=== PATIENT | male | born 1945 | race Caucasian/White ===

== ENCOUNTER 2023-11-02 12:43 | Emergency (ER) | payer MEDICARE ==
--- NOTE | 2023-11-02 13:13 | ED ---
Male Urogenital HPI - General Chief complaint: Urogenital Stated complaint: urinary retention Time Seen by Provider: 11/02/23 12:58 Source: patient, RN notes reviewed Mode of arrival: ambulatory Limitations: no limitations - History of Present Illness Initial comments: This is an 78-year-old male who presents to the emergency department for urinary retention. States that he has not been able to urinate since about 11pm last night. Reports increasing abdominal pain as a result. He did have problems with urinary retention 3 years ago and required a Dinero catheter. He has also had urinary tract infections that have lead to urinary retention. He does have an enlarged prostate which occasionally causes him to have a slower urine stream. He does not currently follow with urology. - Related Data Home Medications Medication Instructions Recorded Confirmed lisinopriL [Zestril] 2.5 mg PO DAILY 05/13/14 01/16/16 metFORMIN HCL [Glucophage] 1,000 mg PO BID 05/13/14 01/16/16 Glimepiride [Amaryl] 1 mg PO BID 01/12/16 01/16/16 Ibuprofen [Motrin] 200 - 400 mg PO Q6HR PRN 01/12/16 01/16/16 Multivitamins, Thera [Multivitamin] 1 tab PO DAILY 01/12/16 01/16/16 Allergies Allergy/AdvReac Type Severity Reaction Status Date / Time No Known Allergies Allergy Verified 11/02/23 12:55 Review of Systems ROS Statement: Those systems with pertinent positive or pertinent negative responses have been documented in the HPI. ROS Other: All systems not noted in ROS Statement are negative. Past Medical History Past Medical History: Asthma, Cancer, Diabetes Mellitus, Hypertension, Prostate Disorder Additional Past Medical History / Comment(s): ASTHMA IN PAST. Takes BP RX for PREVENTION OF Kidneys, HAS "BORDERLINE HTN." HX Melanoma. BPH. History of Any Multi-Drug Resistant Organisms: None Reported Past Surgical History: Orthopedic Surgery Additional Past Surgical History / Comment(s): LT Ankle ORIF. COLONOSCOPY. Past Anesthesia/Blood Transfusion Reactions: No Reported Reaction Past Psychological History: No Psychological Hx Reported Smoking Status: Never smoker Past Alcohol Use History: Occasional Past Drug Use History: None Reported - Past Family History Brother(s) Family Medical History: Cancer General Exam Limitations: no limitations General appearance: alert, in no apparent distress Head exam: Present: atraumatic, normocephalic, normal inspection Respiratory exam: Present: normal lung sounds bilaterally. Absent: respiratory distress, wheezes, rales, rhonchi, stridor Cardiovascular Exam: Present: regular rate, normal rhythm, normal heart sounds. Absent: systolic murmur, diastolic murmur, rubs, gallop, clicks GI/Abdominal exam: Present: soft, tenderness (Suprapubic), normal bowel sounds. Absent: distended Neurological exam: Present: alert, oriented X3, CN II-XII intact Psychiatric exam: Present: normal affect, normal mood Skin exam: Present: warm, dry, intact, normal color. Absent: rash Course Vital Signs 11/02/23 11/02/23 12:51 13:18 Temperature 98.3 F 97.9 F Pulse Rate 66 61 Respiratory 16 Rate Blood Pressure 163/84 174/84 O2 Sat by Pulse 95 100 Oximetry Medical Decision Making - Medical Decision Making This is an 78-year-old male who presents to the emergency department for urinary retention. Was pt. sent in by a medical professional or institution? @ -No Did you speak to anyone other than the patient for history? @ -No Did you review nursing and triage notes? @ -Yes, and I agree, it is accurate with regards to the patient's symptoms. Were old charts reviewed? @ -No Differential Diagnosis? @ -Differential Urinary Retention: Obstruction, UTI, neurological issue, this is not meant to be an all-inclusive list. EKG interpreted by me (3pts min.)? @ -Not obtained X-rays interpreted by me (1pt min.)? @ -Not obtained CT interpreted by me (1pt min.)? @ -Not obtained U/S interpreted by me (1pt. min.)? @ -Not obtained What testing was considered but not performed? (CT, X-rays, U/S, labs)? Why? @ -None What meds were considered but not given? Why? @ -None Did you discuss the management of the patient with other professionals? @ -No Did you reconcile home meds? @ -No Was smoking cessation discussed for >3mins.? @ -No Was critical care preformed (if so, how long)? @ -No Were there social determinants of health that impacted care today? How? (Homelessness, low income, unemployed, alcoholism, drug addiction, transportation, low edu. Level, literacy, decrease access to med. care, detention, rehab)? @ -No Was there de-escalation of care discussed even if they declined? (Discuss DNR or withdrawal of care, Hospice)? @ -No What co-morbidities impacted this encounter? (DM, HTN, Smoking, COPD, CAD, Cancer, CVA, Hep., AIDS, mental health diagnosis, sleep apnea, morbid obesity)? @ -BPH Was patient admitted / discharged? @ -Discharged. Bladder scan performed initially, revealing >900 mL of urine. Dinero catheter was subsequently placed and >1900 mL of urine was drained from the bladder and he had significant improvement in symptoms. Urinalysis negative for signs of infection. Patient discharged home with Dinero catheter in place and given information to follow up with urology. Undiagnosed new problem with uncertain prognosis? @ -None Drug Therapy requiring intensive monitoring for toxicity (Heparin, Nitro, Insulin, Cardizem)? @ -None Were any procedures done? @ -None Diagnosis/symptom? @ -Urinary retention Acute, or Chronic, or Acute on Chronic? @ -Acute Uncomplicated (without systemic symptoms) or Complicated (systemic symptoms)? @ -Uncomplicated Side effects of treatment? @ -None Exacerbation, Progression, or Severe Exacerbation] @ -Not applicable Poses a threat to life or bodily function? @ -Not at this time Return precautions reviewed in depth, the patient is instructed to return to the emergency department with any new, worsening, or concerning symptoms. Patient verbalized understanding. This case was discussed in detail with the attending ED physician, Dr. Beltrán. Presentation, findings, and treatment plan discussed in detail as well. - Lab Data Lab Results 11/02/23 Range/Units 14:07 Urine Color Light Yellow Urine Appearance Clear (Clear) Urine pH 6.0 (5.0-8.0) Ur Specific [place] 1.010 (1.001-1.035) Urine Protein Negative (Negative) Urine Glucose (UA) Negative (Negative) Urine Ketones Negative (Negative) Urine Blood Negative (Negative) Urine Nitrite Negative (Negative) Urine Bilirubin Negative (Negative) Urine Urobilinogen <2.0 (<2.0) mg/dL Ur Leukocyte Esterase Negative (Negative) Disposition Clinical Impression: Urinary retention Disposition: HOME SELF-CARE Instructions (If sedation given, give patient instructions): Urinary Retention in Men (ED), Dinero Catheter Placement and Care (ED), How to Change a Catheter Drainage Bag (DC) Additional Instructions: Return to the emergency department with any new, worsening, or concerning symptoms. Contact the urologist as listed below for a follow up appointment. Let them know that you were seen in the emergency department for urinary retention and had a Dinero catheter placed. Is patient prescribed a controlled substance at d/c from ED?: No Referrals: Juan Pablo Wolf DO [Primary Care Provider] - 1-2 days Aristeo Zarco MD [STAFF PHYSICIAN] - 1-2 days Time of Disposition: 14:38
[2023-11-02 13:45] VITALS: BP 174/84; PULSE 61; RESP 16; TEMP 97.9
[2023-11-02 14:23] LABS: Appearance,Urine Clear (Clear); Bilirubin,Urine Negative (Negative); Blood,Urine Negative (Negative); Color,Urine Light Yellow; Glucose,Urine (UA) Negative (Negative); Ketones,Urine Negative (Negative); Leukocyte Esterase,Urine Negative (Negative); Nitrite,Urine Negative (Negative); Protein,Urine Negative (Negative); Urobilinogen,Urine <2.0 mg/dL (<2.0)
== END 2023-11-02 15:20 | disposition home or self-care (01) ==
LOC: EC 12:43
DX: R33.9 Retention of urine, unspecified (principal); E11.9 Type 2 diabetes mellitus without complications; I10 Essential (primary) hypertension; J45.909 Unspecified asthma, uncomplicated; Z79.84 Long term (current) use of oral hypoglycemic drugs; Z79.899 Other long term (current) drug therapy
CPT/HCPCS: 51702; 81003; 99283

== ENCOUNTER → 2024-04-28 | Outpatient (CLI) | payer MEDICARE ==
--- NOTE | 2024-04-28 14:23 | US ---
EXAMINATION TYPE: US venous doppler duplex LE DATE OF EXAM: 04/28/2024 1:57 PM COMPARISON: NONE CLINICAL INDICATION: Male, 78 years old with history of R60.0 LOCALIZED EDEMA; swelling in left leg. No hx of DVT, takes a baby aspirin SIDE PERFORMED: Bilateral TECHNIQUE: The lower extremity deep venous system is examined utilizing real time linear array sonog antonia with graded compression, doppler sonography and color-flow sonography. VESSELS IMAGED: Common Femoral Vein Deep Femoral Vein Greater Saphenous Vein * Femoral Vein Popliteal Vein Small Saphenous Vein * Proximal Calf Veins (* superficial vessels) Right Leg: No evidence for DVT Left Leg: No evidence for DVT IMPRESSION: Grayscale, color doppler, spectral doppler imaging performed of the deep veins of the lo wer extremities. There is normal flow, compressibility, vascular waveforms.
== END | disposition home or self-care (01) ==
LOC: RADUSWWP 13:54
PROVIDERS: ATTEND Internal Medicine
DX: R60.0 Localized edema (principal); M79.89 Other specified soft tissue disorders
CPT/HCPCS: 93970

== ENCOUNTER → 2025-02-10 | Outpatient (CLI) | payer MEDICARE ==
--- NOTE | 2025-02-10 09:56 | US ---
EXAMINATION TYPE: US liver DATE OF EXAM: 02/10/2025 COMPARISON: NONE CLINICAL INDICATION: Male, 79 years old with history of E80.6 HYPERBILIRUBINEMIA; Hyperbilirubinemia TECHNIQUE: Grayscale and color Doppler imaging of the right upper quadrant was performed. FINDINGS: EXAM MEASUREMENTS: Liver Length: 13.2 cm Gallbladder Wall: .2 cm CBD: .5 cm Right Kidney: 8.8 x 4.4 x cm [employer]N NOTES: Pancreas: Obscured by bowel gas Liver: Increased attenuation, no suspicious observations. Gallbladder: No stones seen, no evidence for wall thickening or pericholecystic fluid. Evidence for sonographic West's sign: No CBD: wnl Right Kidney: Anechoic area upper pole 1.6 x 2.0 x 1.4 cm Midpole 2.1 x 1.4 x 1.9 cm. IMPRESSION: No evidence for acute process. Hepatic steatosis. No suspicious observations. [facility], , 02/10/2025 9:53 AM
== END | disposition home or self-care (01) ==
LOC: RADUSWWP 08:13
PROVIDERS: ATTEND Internal Medicine
DX: K76.0 Fatty (change of) liver, not elsewhere classified (principal); E80.6 Other disorders of bilirubin metabolism
CPT/HCPCS: 76705

== ENCOUNTER → 2025-04-22 | Outpatient (CLI) | payer MEDICARE ==
[2025-04-22 15:25] LABS: HCT 39.1 % (39.6-50.0); HGB 12.6 g/dL (13.0-17.0); MCH 29.4 pg (27.0-32.0); MCHC 32.2 g/dL (32.0-37.0); MCV 91.1 FL (80.0-97.0); NRBC Per 100 WBC 0 X 10*3/uL (0.00-0.01); Platelet Count 197 X 10*3/uL (140-440); RBC 4.29 X 10*6/uL (4.40-5.60); RDW 13.7 % (11.5-14.5); WBC 8.10 X 10*3/uL (4.50-10.00)
[2025-04-22 15:49] LABS: AST 22 U/L (14-35); Albumin 4.0 g/dL (3.8-4.9); Albumin/Globulin Ratio 1.82 Ratio (1.60-3.17); Anion Gap 12.10 mmol/L (4.00-12.00); BUN/Creat Ratio 19.67 Ratio (12.00-20.00); Blood Urea Nitrogen 23.6 mg/dL (9.0-27.0); Calcium 9.0 mg/dL (8.7-10.3); Carbon Dioxide 22.9 mmol/L (21.6-31.8); Chloride 106 mmol/L (96-109); Cholesterol 104.00 mg/dL (0.00-200.00); Globulin 2.2 g/dL (1.6-3.3); Glucose 141 mg/dL (70-110); HDL Cholesterol 33.80 mg/dL (40.00-60.00); LDL Cholesterol,Calculated 60.2 mg/dL (0.0-131.0); Potassium 4.6 mmol/L (3.5-5.5); Sodium 141 mmol/L (135-145); Total Protein 6.2 g/dL (6.2-8.2); Triglycerides 50.00 mg/dL (0.00-149.00); VLDL Calculation 10.00 mg/dL (5.00-40.00)
[2025-04-22 15:50] LABS: ALT 25 U/L (10-49); Alkaline Phosphatase 82 U/L (41-126)
[2025-04-22 15:52] LABS: NT-Pro-B-Type Natriuretic Pept 2572 pg/mL (0-450)
== END | disposition home or self-care (01) ==
LOC: LABWHC1 08:06
PROVIDERS: ATTEND Student in an Organized Health Care Education/Training Program
DX: I50.9 Heart failure, unspecified (principal); E11.9 Type 2 diabetes mellitus without complications; E78.5 Hyperlipidemia, unspecified; E03.9 Hypothyroidism, unspecified; D72.9 Disorder of white blood cells, unspecified; R79.89 Other specified abnormal findings of blood chemistry
CPT/HCPCS: 36415; 80053; 80061; 83036; 83880; 84443; 85027